=== PATIENT | female | born 1945 | race Caucasian/White ===

== ENCOUNTER 2019-10-04 12:12 | Inpatient (IN) | payer MEDICARE, OTHER, SELFPAY ==
[2019-10-04] VITALS (9 sets, daily range): BP systolic 111–139; BP diastolic 62–82; PULSE 52–92; RESP 18–22; TEMP 36.2–36.9; O2SAT 96–100; BMI 26.2
--- NOTE | 2019-10-04 12:51 | US_ITS ---
STUDY: ABDOMINAL ULTRASOUND - RIGHT UPPER QUADRANT REASON FOR VISIT: Female, 74 years old RUQ PAIN TECHNIQUE: Ultrasound evaluation of the right upper quadrant was performed with real-time and static rodriguez-scale imaging. TECHNICAL QUALITY: Adequate. COMPARISON: None. FINDINGS: Liver: The liver measures 13.8 cm. There is increased echogenicity consistent with fatty infiltration. The bile ducts are within normal limits. There is hepatic color flow. The direction of portal flow is hepatopetal. There is no demonstrated mass lesion. Gallbladder: Normal distended gallbladder. The gallbladder wall measures 2.0 mm. There is a positive sonographic Vivar''s sign. There is no pericholecystic fluid. There are multiple echogenic structures within the gallbladder, consistent with multiple gallstones. At least one gallstone is seen in the neck of the gallbladder. Common Bile Duct (C.B.D.): The common bile duct measures 7.0 mm. Pancreas: Normal size of the head, body and tail of the pancreas. There is normal echogenicity of the pancreas. There is no demonstrated pancreatic mass or cyst. Right Kidney: Normal size of the right kidney. The right kidney measures 9.2 cm x 3.7 cm x 3.4 cm. Normal renal cortex. The right cortex measures 1.2 cm. There is no demonstrated renal mass or cyst. There is no right hydronephrosis. US/Abdomen Limited IMPRESSION: Multiple gallstones. Mild degree of fatty infiltration of the liver. Electronically Signed: Deondre Bower, at 13:54 EST , Service support ,
--- NOTE | 2019-10-04 12:51 | ED.DCSUM_ITS ---
History of Present Illness Chief Complaint: Abd Pain Informant: Patient Onset: Today Current Severity: Resolved Maximum Severity: Severe Narrative: Patient presents with upper abdominal pain that is been bothering her overnight. Patient states she woke approximately 2 AM with severe upper abdominal pain that radiate up into her chest into her shoulders. She did take 2 Tums and was able to get it to calm down. She is able to sleep again for several hours. She woke up this morning and still felt ill with some mild upper abdominal pain. Abdominal pain worsened later in the morning. She was able to eat a half a bowl of oatmeal. She did take Percocet around 11 AM. She currently denies any pain. - Past Medical History (1) High cholesterol Status: Chronic (2) GERD (gastroesophageal reflux disease) Status: Chronic (3) Hypothyroid Status: Chronic Past Medical History - Allergies and Home Meds Allergies/Adverse Reactions: Allergies No Known Allergies Allergy (Verified 10/04/19 12:13) Primary Care Physician: Chris Wise DO [Primary Care Provider] - Prior records reviewed: Yes Surgical History: appendectomy Lives: Alone Smoking Status: Former smoker Review of Systems General: Denies: Chills, Fever Eyes: Denies: Visual changes - bilaterally ENT: Denies: Bilateral ear pain Cardiovascular: Denies: Chest pain Respiratory: Denies: Dyspnea, Cough Gastrointestinal: Reports: Abdominal pain. Denies: Nausea, Vomiting, Diarrhea Genitourinary: Denies: Dysuria Musculoskeletal: Denies: Extremity Pain Skin: Denies: Rash Neurological: Denies: Headache Allergy: Denies: Uticaria Physical Exam Vital Signs/Narrative: Vital Signs Temp Pulse Resp BP Pulse Ox 10/04/19 12:14 97.2 F L 52 L 18 123/62 H 99 Inital Vital Signs reviewed: Yes General: Well nourished, Well developed Head: Normocephalic ENT: Moist mucous membranes Neck: Supple Cardiovascular: Regular rate, Regular rhythm Respiratory: No distress, CTA bilaterally Abdomen: Soft, Nontender, Normal bowel sounds Skin: Normal color Neurological: Alert, Oriented x3 Psychological: Normal affect Diagnostic/Tx/Re-eval Impressions Abdomen Ultrasound 10/04/19 12:51 IMPRESSION: Multiple gallstones. Mild degree of fatty infiltration of the liver. Electronically Signed: Deondre Bower, at 13:54 EST , Service support , 10/04/19 12:51 Abdomen Limited [US] Stat Laboratory Results 10/04/19 10/04/19 12:43 12:48 WBC 10.0 RBC 4.11 L Hgb 11.1 L Hct 35.7 L MCV 86.9 MCH 27.0 MCHC 31.1 L RDW Std Deviation 48.5 H RDW Coeff of Jose Alberto 15.4 H Plt Count 239 MPV 9.9 Immature Gran % (Auto) 0.400 Neut % (Auto) 83.6 H Lymph % (Auto) 7.9 L [place] % (Auto) 6.9 Eos % (Auto) 0.9 Baso % (Auto) 0.3 Absolute Neuts (auto) 8.4 H Absolute Lymphs (auto) 0.79 L Nucleated RBC % 0 Sodium 139 Potassium 3.8 Chloride 107 Carbon Dioxide 26.0 Anion Gap 6 BUN 13 Creatinine 1.11 H Estim Creat Clear Calc 38.98 Est GFR (MDRD) Af Amer 62 Est GFR (MDRD) Non-Af 51 L BUN/Creatinine Ratio 11.7 Glucose 117 H Calcium 10.0 Total Bilirubin 0.40 Direct Bilirubin 0.23 AST 75 H ALT 47 Alkaline Phosphatase 96 Troponin I < 0.015 Total Protein 6.6 Albumin 3.4 Globulin 3.2 Lipase 912 H - Medical Decision Making Patient declined anything for pain while emergency room. She was given IV fluids. Test results are discussed with patient and sister at bedside. I spoke with the Fred who reviewed her images. He presented to the emergency room to see the patient. He will plan on taking the patient to the OR this afternoon. ED Disposition - Plan for ED Patient: Disposition: Acute Care Hospital [facility] Diagnosis: Gallstone pancreatitis Referrals: Chris Wise DO [Primary Care Provider] -
[2019-10-04 13:03] LABS: Absolute Lymphocyte Count 0.79 X10^3/uL (0.83-4.51); Absolute Neutrophil Count 8.4 X10^3/uL (2.0-7.7); Basophil# 0.03 X10^3/uL; Basophil% 0.3 % (0-1); Eosinophil# 0.09 X10^3/uL; Eosinophils% 0.9 % (0-5); Hematocrit 35.7 % (37-47); Hemoglobin 11.1 g/dL (12.0-15.0); Lymphocyte # 0.79 X10^3/ul (4.0); Lymphocyte % 7.9 % (19-41); Mean Corp Hgb Conc 31.1 g/dL (32-36); Mean Corpuscular Volume 86.9 fL (81-99); Mean Platelet Vol. 9.9 fl (6.2-12.0); Monocyte# 0.69 X10^3/uL; Monocyte% 6.9 % (0-10); NRBC Flagged by Analyzer 0 % (0-5); Neutrophil # 8.36 X10^3/uL (2.7-7.7); Neutrophil % 83.6 % (47-70); Platelet Count 239 K/mm3 (150-450); RBC Distribution Width CV 15.4 % (11.6-14.6); RBC Distribution Width SD 48.5 fl (35.1-43.9); Red Blood Count 4.11 M/mm3 (4.2-5.4)
[2019-10-04 13:19] LABS: AST(SGOT) 75 U/L (15-37); Alanine Aminotransfer ALT/SGPT 47 U/L (13-56); Albumin, Serum 3.4 g/dL (3.2-5.0); Alkaline Phosphatase 96 U/L (45-117); Anion Gap 6 (5-15); BUN 13 mg/dL (7-18); BUN/Creat Ratio 11.7 RATIO (10-20); Bilirubin, Direct 0.23 mg/dL (0.00-0.30); Chloride 107 mmol/L (98-107); Creatinine, Serum 1.11 mg/dL (0.55-1.02); EST Glomerular Filtration Rate 51 mL/min (>60); Est Glom Filt Rate - Afr Amer 62 mL/min (>60); Estimated Creatinine Clearance 38.98 ml/min; Globulin 3.2 g/dL (2.2-4.2); Glucose 117 mg/dL (74-106); Lipase 912 U/L (73-393); Potassium 3.8 mmol/L (3.5-5.1); Protein, Total 6.6 g/dL (6.4-8.2); Sodium Level 139 mmol/L (136-145)
[2019-10-04] MEDS: 0.9% Normal Saline 1,000 ML 150 ML IV (13:26)
--- NOTE | 2019-10-04 16:43 | PCM.HP.STD ---
Problem List (1) Acute cholecystitis Status: Acute (2) Gallstone pancreatitis Status: Acute History of Present Illness Date of Admission: 10/04/19 The patient is a 74 year old F who presented with right upper quadrant and epigastric pain. The patient reports the pain started yesterday. She said it woke her this morning as well. She took a Percocet today and her pain has remitted but she has not tried a diet today. She did have nausea but no vomiting. Past Medical History Past Medical History (Chronic Problems): Chronic Problems High cholesterol (Chronic) GERD (gastroesophageal reflux disease) (Chronic) Hypothyroid (Chronic) Allergies No Known Allergies Allergy (Verified 10/04/19 12:13) Home Medications: Ambulatory Orders Medication Instructions Recorded Levothyroxine [Synthroid] 112 mcg PO DAILY 10/04/19 Ranitidine [Zantac] 300 mg PO BID 10/04/19 Rosuvastatin Calcium [Crestor] 20 mg PO UD 10/04/19 Surgical History: appendectomy Lives: Alone Smoking Status: Former smoker - *Family History Maternal History Items: No pertinent history Review of Systems Constitutional: Reports: Anorexia. Denies: Fever HEENT: Denies: Difficulty Swallowing Cardiovascular: Denies: Chest Pain Respiratory: Denies: Cough, Shortness of Breath Gastrointestinal: Reports: Abdominal Pain, Nausea. Denies: Constipation, Diarrhea, Vomiting Musculoskeletal: Denies: Joint Tenderness Skin: Denies: Jaundice Neurological: Denies: Balance problems Hematologic/ Lymphatic: Denies: Anemia VTE Information - Inpt Only VTE Present on Admission: No VTE Mechan Device Prophylaxis: SCD's Patient Problems: Active and Suspected Problems Gallstone pancreatitis (Acute) Acute cholecystitis (Acute) - Physical Exam Vitals/I&O's: Vital Signs Temp Pulse Resp BP Pulse Ox 98.5 F 91 22 H 138/70 H 99 10/04/19 16:32 10/04/19 16:32 10/04/19 16:32 10/04/19 16:32 10/04/19 16:32 Oxygen Delivery Method Room Air Weight: 152 lb 12.485 oz Body Mass Index (BMI) 26.2 Intake and Output for Last 24 Hours 10/02/19 10/03/19 10/04/19 23:59 23:59 23:59 Intake Total 1000 / 1000 Balance 1000 / 1000 General: Alert, Oriented x3 Neck: No JVD Lungs: Normal air movement Cardiovascular: Regular rate, Regular Rhythm Abdomen: Soft, Non Tender, Non-Distended Extremities: No clubbing Musculoskeletal: No Muscle Wasting Neurological: Cranial nerves II-XII grossly intact Psych/Mental Status: Normal Affect Laboratory Results 10/04/19 12:43: WBC 10.0, RBC 4.11 L, Hgb 11.1 L, Hct 35.7 L, MCV 86.9, MCH 27.0, MCHC 31.1 L, RDW Std Deviation 48.5 H, RDW Coeff of Jose Alberto 15.4 H, Plt Count 239, MPV 9.9, Immature Gran % (Auto) 0.400, Neut % (Auto) 83.6 H, Lymph % (Auto) 7.9 L, [place] % (Auto) 6.9, Eos % (Auto) 0.9, Baso % (Auto) 0.3, Absolute Neuts (auto) 8.4 H, Absolute Lymphs (auto) 0.79 L, Nucleated RBC % 0 10/04/19 12:48: Sodium 139, Potassium 3.8, Chloride 107, Carbon Dioxide 26.0, Anion Gap 6, BUN 13, Creatinine 1.11 H, Estim Creat Clear Calc 38.98, Est GFR (MDRD) Af Amer 62, Est GFR (MDRD) Non-Af 51 L, BUN/Creatinine Ratio 11.7, Glucose 117 H, Calcium 10.0, Total Bilirubin 0.40, Direct Bilirubin 0.23, AST 75 H, ALT 47, Alkaline Phosphatase 96, Troponin I < 0.015, Total Protein 6.6, Albumin 3.4, Globulin 3.2, Lipase 912 H Clinical Impression(s) from Imaging Studies Abdomen Ultrasound 10/04/19 12:51 IMPRESSION: Multiple gallstones. Mild degree of fatty infiltration of the liver. Electronically Signed: Deondre Bower, at 13:54 EST , Service support , Current Medications Sodium Chloride () 1,000 mls @ 150 mls/hr IV .Q6H40M ALIA Last Infusion: 10/04/19 16:33 Dose: Infused Documented by: Assessment/Plan All Active Problems Gallstone pancreatitis (Acute) Acute cholecystitis (Acute) 74-year-old female with acute cholecystitis 1. Patient has a borderline white count with a left shift. She also has right upper quadrant and epigastric pain. Her lipase was mildly elevated suggesting gallstone pancreatitis. She had an ultrasound which showed a gallstone lodged in the neck of the gallbladder. She likely has developing acute cholecystitis with possible gallstone pancreatitis. I recommended laparoscopic cholecystectomy with cholangiogram. I also discussed the possibility of having to do an ERCP if she does have choledocholithiasis. 2. I discussed the procedure in detail with the patient. I discussed the risks, benefits, and alternatives of the procedure. I discussed the risks including but not limited to bleeding, infection, injury to surrounding organs such as the liver, bile duct, bowels. I did discuss the possibility of having to convert to an open procedure as well as the possibility that if any injuries occurred this may necessitate further surgery at a tertiary care center. Oscar Ibarra MD Pager: [facility] [address] [place] [address] [address] [place] [address] Office:
[2019-10-04] MEDS: Famotidine 20 MG Tablet PO (22:53)
[2019-10-05] VITALS (11 sets, daily range): BP systolic 101–123; BP diastolic 54–68; PULSE 59–94; RESP 14–18; TEMP 36.2–37.2; O2SAT 92–100; BMI 26.2
--- NOTE | 2019-10-05 | GALL_PTH ---
PATIENT: RODRI NORMAN LOC: MS3 U#:[id number] AGE/SX: 74/F ROOM: MS311 RE10/04/[address]: Dr. Oscar Ibarra MD : 1945 BED: 1 DIS: 10/05/2019 SPEC #: [id number] RECD: 10/07/19 09:20 STATUS: PABLO LAUREN #: [id number] HE: 10/05/19 00:[address]: Oscar Ibarra DEPT: SURGICAL PATHOLOGY RECD BY: Jorge Boggs ENTERED: 10/07/19 13:18 SP TYPE: JUAN MIGUEL CABALLERO DR: Dr. Chris Wise DO Tissues: Gallbladder, NOS Procedures: Surgery Specimen Level III HEADER OPERATION: Laparoscopic cholecystectomy with IOC PRE-OP DIAGNOSIS: Acute cholecystitis TISSUE SUBMITTED: Gallbladder MICROSCOPIC DIAGNOSIS Gallbladder, cholecystectomy: Chronic cholecystitis and cholelithiasis. SJ:alba 10/08/19 MICROSCOPIC DESCRIPTION Slides are reviewed. GROSS DESCRIPTION Received is one container labeled with the patient's name and designated gallbladder. The specimen consists of a gallbladder measuring 7.5 x 3.5 x 2.8 cm. The external surface is smooth and glistening. Focally, it is granular, hemorrhagic and contains cautery artifact. The lumen of the gallbladder contains yellow-green mucoid bile and multiple black calculi ranging in size from <0.1 to 1 cm. The mucosa is bile-stained and without any mass lesions. The gallbladder wall averages 0.2 cm in thickness and is free of mass lesions. Electric [employer] sections of the gallbladder and the cystic duct at margin of resection are submitted in one cassette. / AM:alba 10/07/19 TC:3 CPT: 33995
--- NOTE | 2019-10-05 07:51 | NURSING ---
pt transported to PACU for pre-op at this time via bed. zosyn infusion running on pump. OR aware that clive is waiting downstairs in surgical waiting area
[2019-10-05 08:04] LABS: Absolute Lymphocyte Count 1.26 X10^3/uL (0.83-4.51); Absolute Neutrophil Count 4.9 X10^3/uL (2.0-7.7); Basophil# 0.04 X10^3/uL; Basophil% 0.6 % (0-1); Eosinophil# 0.19 X10^3/uL; Eosinophils% 2.7 % (0-5); Hematocrit 32.3 % (37-47); Hemoglobin 10.1 g/dL (12.0-15.0); Lymphocyte # 1.26 X10^3/ul (4.0); Lymphocyte % 18.1 % (19-41); Mean Corp Hgb Conc 31.3 g/dL (32-36); Mean Corpuscular Hgb 27.2 pg (27.0-32.0); Mean Corpuscular Volume 86.8 fL (81-99); Monocyte# 0.57 X10^3/uL; Monocyte% 8.2 % (0-10); NRBC Flagged by Analyzer 0 % (0-5); Neutrophil # 4.89 X10^3/uL (2.7-7.7); Neutrophil % 70.3 % (47-70); Platelet Count 208 K/mm3 (150-450); RBC Distribution Width CV 15.6 % (11.6-14.6); RBC Distribution Width SD 49.9 fl (35.1-43.9); Red Blood Count 3.72 M/mm3 (4.2-5.4)
--- NOTE | 2019-10-05 08:15 | RAD_ITS ---
PROCEDURE: INTRAOPERATIVE CHOLANGIOGRAM DATE OF EXAMINATION: 10/05/2019 INDICATION: Female, 74 years old. Following a laparoscopic cholecystectomy an intraoperative cholangiogram was performed by the surgeon. Cumulative dose: 42.28 mGy TECHNIQUE: Under fluoroscopic guidance an intraoperative cholangiogram was performed with serial digital images obtained. FINDINGS: There is opacification of the common bile duct, hepatic duct, right and left hepatic ducts. The ducts are dilated. Multiple small round to mildly elongated, partially mobile filling defects in the lower CBD just above the ampulla are identified with subsequent placement of biliary stent on final images. The stent extends from the upper CBD into the duodenum. The contrast flows into the second portion of the duodenum. RAD/Cholangiogram/ O R,Initial IMPRESSION: 1. Fluoroscopic guidance for intraoperative cholangiogram during cholecystectomy and CBD stent placement. 2. Small lower CBD filling defects may represent choledocholithiasis, debris, neoplasm or less likely air bubbles. Electronically Signed: Julio Eubanks MD (Brooks) at 12:17 EST , Service support ,
[2019-10-05 08:26] LABS: ALB/GLOB Ratio 0.9 RATIO (0.9-2.4); AST(SGOT) 55 U/L (15-37); Alanine Aminotransfer ALT/SGPT 67 U/L (13-56); Albumin, Serum 2.8 g/dL (3.2-5.0); Alkaline Phosphatase 87 U/L (45-117); Anion Gap 7 (5-15); BUN 9 mg/dL (7-18); Calcium,Total 8.6 mg/dL (8.5-10.1); Chloride 111 mmol/L (98-107); Creatinine, Serum 1.12 mg/dL (0.55-1.02); EST Glomerular Filtration Rate 51 mL/min (>60); Est Glom Filt Rate - Afr Amer 61 mL/min (>60); Estimated Creatinine Clearance 38.63 ml/min; Glucose 88 mg/dL (74-106); Lipase 207 U/L (73-393); Potassium 3.6 mmol/L (3.5-5.1); Protein, Total 5.8 g/dL (6.4-8.2); Sodium Level 144 mmol/L (136-145)
[2019-10-05] MEDS: Lactated Ringers 1,000 ML 100 ML IV (08:30)
[2019-10-05 08:41] LABS: Thyroid Stim Hormone (TSH) 1.62 uIU/mL (0.358-3.74)
[2019-10-05] MEDS: Bupivacaine 0.25% 30 ML Vial (09:26)
--- NOTE | 2019-10-05 15:28 | PCM.OPRPT ---
Problem List (1) Acute cholecystitis Status: Acute (2) Gallstone pancreatitis Status: Acute Report of Operation Date of Procedure: 10/05/19 Pre-Operative Diagnosis: Acute cholecystitis Post-Operative Diagnosis: Acute cholecystitis and choledocholithiasis Surgery/Procedure Performed:: Laparoscopic cholecystectomy with common duct exploration and stent placement Specimen's removed: Gallbladder and contents Description of Procedure: After obtaining informed consent patient was brought back to the operating room. General anesthesia was induced. The abdomen was prepped and draped in usual sterile fashion. A small midline incision was made superior to the umbilicus and deepened to the level of fascia. The fascia was elevated and incised. Next the peritoneum was elevated and incised in the same fashion. Finger sweep was performed and the Mitchell trocar was placed into the abdomen. The balloon was inflated. The abdomen was inflated to 15 mmHg. Next a camera was introduced into the abdomen and the abdomen was inspected. Next under direct visualization three 5-mm ports were placed one subxiphoid and 2 subcostal. Next the gallbladder was elevated and retracted toward the right shoulder. The peritoneum was stripped from the gallbladder. The infundibulum was located and retracted laterally. Next the triangle of Calot was dissected and the cystic duct and cystic artery were identified. Cholangiograms were performed. The Hernandes clamp was used to clamp across the infundibulum and the catheter needle was inserted into the gallbladder. Under fluoroscopy contrast was instilled into the gallbladder and the common duct, cystic duct as well as proximal hepatic ducts were identified. There was not good filling of the duodenum. There were filling defects in the distal common bile duct and the common bile duct and cystic duct were both dilated. Next a clip was placed in the proximal cystic duct. An introducer needle was placed in the right upper quadrant and then as sheath introducer was placed over this and the needle and guidewire removed. Next through the introducer a 4 Citizen [place] Lia catheter was placed and it was placed into the cystic duct and into the common bile duct. Contrast was instilled. A guidewire was placed through this and into the common bile duct and into the duodenum. Next the Lia catheter was removed and over the guidewire a 7 Citizen [place] stent was guided across the ampulla with the distal end in the small bowel and the proximal end of the common bile duct. It was deployed in good position. Once the stent was deployed contrast freely flowed from the common duct into the small bowel. It appeared to be in good position. The guidewire was removed as well as the introducer. Next clips were placed on the distal cystic duct. The cystic duct was then divided leaving 2 clips on the stump. The cystic artery was clipped and divided in the same fashion. The hook cautery was then used to take the gallbladder off of the gallbladder bed. Hemostasis was obtained. Gallbladder fossa was irrigated and no active bleeding or bile leakage was noted. Next the camera switched to a 5 mm camera and introduced in the subxiphoid port. An Endopouch bag was placed through the umbilical port and the gallbladder was placed into it. The gallbladder was then removed through the umbilical incision. The camera was then reinserted through the umbilical port. The gallbladder fossa was inspected once more and noted to be hemostatic with no leaking bile. The abdomen was suctioned dry. The 5 mm ports were removed under direct visualization. The umbilical port was then removed and the air was removed from the abdomen. Next using an 0 Vicryl suture the umbilical fascia was closed in a [id number] fashion. The umbilical port site was irrigated local anesthetic was administered to all the incisions. All the incisions were closed with interrupted subcuticular 4-0 Monocryl sutures followed by Steri-Strips and dressings. The patient was awoken and taken to PACU in stable condition. Grafts/Implants Used: 7 [place] stent - Admit VTE Documentation VTE Mechan Device Prophylaxis: SCD's
--- NOTE | 2019-10-05 15:38 | DCINST_ITS ---
Discharge Diet: Light diet - advance as tolerated Discharge Activity: Return to Normal Activity, May Not Drive - for 2-3 days or while taking narcotic pain medicataions., - - Do not drive, work heavy equipment or sign legal documents for 24 hours. May shower in (days): 1 - with the bandage in place. Lifting Restrictions: 20 lbs for 2 weeks Additional Activity Instructions:: Pain medication may cause nausea. You should typically eat light foods as you take your pain medications. Pain medication may also cause constipation. If this is a problem for you, please discuss with your doctor. Call your doctor if your incision/area has: Continuous Slow Oozing, Sudden Increased Bleeding, Increased Pain/ Swelling, Increased Redness, Foul Smelling Discharge, Fever of 101 or Higher Call your doctor if you observe: Fever of 101 or Higher Suture Line Care: Avoid Pulling/Pushing, Avoid Pinching/Bending Additional Dressing/Incision Instructions:: Leave operative bandaids on for 2 days. When you remove dressing, leave Steri-Strips on until your follow-up appointment, or until the Steri-Strips fall off on their own. Allergies/Adverse Reactions: Allergies No Known Allergies Allergy (Verified 10/04/19 12:13) Medications to take at Discharge Levothyroxine [Synthroid] 112 mcg PO DAILY 10/04/19 Ranitidine [Zantac] 300 mg PO BID 10/04/19 Rosuvastatin Calcium [Crestor] 20 mg PO UD 10/04/19 Acetaminophen [Tylenol Tablet] 650 mg PO Q6H PRN PRN tablet 10/05/19 Primary Care Physician: Chris Wise DO [Primary Care Provider] - Test Results: Test results from this visit will be discussed in further detail at your follow- up appointment, if applicable. Please Follow Up With: Oscar Ibarra MD When: Please call to schedule 1 week follow up appointment. [phone]
== END 2019-10-05 16:29 | disposition home or self-care (01) | DRG 419 ==
LOC: ED 18:39 → MS3 18:41
PROVIDERS: Anesthesiology; Admitting Provider Surgery; Emergency Provider Emergency Medicine; PCP Student in an Organized Health Care Education/Training Program; Visit Provider Surgery
PROC: (CPT 47610; principal; 2019-10-04 16:20)
PROC: 0FT44ZZ Resection of Gallbladder, Percutaneous Endoscopic Approach (ICD-10-PCS; CPT 47610; principal; 2019-10-05 08:00)
DX: K80.62 Calculus of gallbladder and bile duct with acute cholecystitis without obstruction (principal); Z87.891 Personal history of nicotine dependence
CPT/HCPCS: 36415; 74300; 76000; 76705; 80048; 80053; 80076; 83690; 84443; 84484; 85025; 88304; 93005; 97802; 99251; 99285; J7030; J7120; G0463; J1610; J2405

== ENCOUNTER 2019-11-12 09:59 | Day surgery (SDC) | payer MEDICARE, OTHER, SELFPAY ==
[2019-10-14 09:53] VITALS: BMI 26.2
--- NOTE | 2019-10-14 09:53 | HP_ITS ---
Intake Intake Visit Reasons: F/U CHOLECYSTECTOMY 10/05/2019 Chief Complaint: abdominal pain Allergies No Known Allergies Allergy (Verified 10/14/19 08:41) Medications Levothyroxine [Synthroid] 112 mcg PO DAILY 10/04/19 [History Confirmed 10/14/19] Ranitidine [Zantac] 300 mg PO BID 10/04/19 [History Confirmed 10/14/19] Rosuvastatin Calcium [Crestor] 20 mg PO UD 10/04/19 [History Confirmed 10/14/19] Acetaminophen [Tylenol Tablet] 650 mg PO Q6H PRN PRN tab 10/05/19 [Rx Confirmed 10/14/19] PFSH Medical History High cholesterol (Chronic) GERD (gastroesophageal reflux disease) (Chronic) Hypothyroid (Chronic) Gallstone pancreatitis (Acute) Acute cholecystitis (Acute) Surgical History S/P laparoscopic cholecystectomy (Acute) HPI HPI HPI: RODRI NORMAN, is a 74 F who presents to the office today for HPI HPI Surgical H&P: Yes HPI: RODRI NORMAN, is a 74 F who presents to the office today for follow-up after cholecystectomy. Patient reports that she is doing well with no pain. ROS General General: No weight change or fatigue Cardio Cardiovascular: No murmur, pacemaker, heart disease, atrial fibrillation, high blood pressure, heart attack, heart stent, palpitations, shortness of breat with exertion or chest pain Psych Psychiatric: No depression or anxiety Resp Respiratory: No shortness of breath, No sleep apnea, No cough, No COPD, No asthma, No emphysema, No wheezing Gastro Gastrointestinal: No abdominal pain, No nausea or vomiting, No diarrhea, No constipation, No blood in stool, No acid reflux, No hemorrhoids, No ulcers, No gallbladder problem, No black,tarry stools Flako Hematologic: No blood thinners Exam Const General: cooperative Orientation: alert, oriented x3 Resp Effort & Inspection: normal respiratory effort Auscultation: clear to auscultation bilaterally Cardio Rate: regular rate Rhythm: regular rhythm Heart Sounds: no murmurs GI Inspection: non-distended Palpation: soft, nontender Assessment & Plan Problems 1. Choledocholithiasis K80.50 Plan Patient is doing well after laparoscopic cholecystectomy with common duct exploration. She had a stent placed at that time for a filling defect in the distal common bile duct. I will plan for ERCP with stent removal and clearing the duct of stones. I discussed the risk of the procedure including not limited to bleeding, infection, perforation of the bile duct or bowel, pancreatitis. I explained that if this was a difficult procedure she would stay for observation. Patient understands the risks and is willing to proceed with ERCP and stent removal as well as stone removal. Oscar Ibarra MD Pager: [facility] [address] [place] [address], [address] [place] [address] Office: Orders Orders: ERCP Biliary Only Today K80.50 Coding Level of Care Code Global Post Op Diagnoses Choledocholithiasis K80.50 10/14/19 0953 <Electronically signed by Oscar cuello MD> Date _ Oscar Ibarra MD I have re-examined the patient. There are no clinical changes since date of exam.
[2019-11-12] VITALS (7 sets, daily range): BP systolic 109–137; BP diastolic 65–96; PULSE 83–91; RESP 16–18; TEMP 36.2–36.7; O2SAT 95–100; BMI 26.9
--- NOTE | 2019-11-12 10:00 | RAD_ITS ---
CLINICAL HISTORY: ERCP with stent removal COMPARISON: None. TECHNIQUE: 3 image(s) of an ERCP performed by Physician: Oscar Ibarra were submitted for evaluation. FINDINGS: Images provided demonstrate an endoscope in place with opacification and cannulation of the biliary system. The visualized opacified biliary system demonstrate questionable narrowing of the distal CBD. The visualized soft tissues and osseous structures are otherwise unremarkable. RAD/ERCP Biliary Only IMPRESSION: Possible narrowing of the distal CBD is nonspecific. Please see associated procedure report for further details. Electronically Signed: Dom Nicholas, at 22:05 EST Tel , Service support ,
[2019-11-12] MEDS: Lactated Ringers 1,000 ML 100 ML IV (10:32)
--- NOTE | 2019-11-12 12:09 | OP.CCLET_ITS ---
11/12/2019 Chris Wise [address] [id number] Re : ERCP procedure for Olga Lidia Rees Dear Dr. Wise This procedure was performed on Tuesday, November 12, 2019. My impressions and recommendations are as follows: Impressions : - One stent was removed from the biliary tree. - A biliary sphincterotomy was performed. - The biliary tree was swept and sludge was found. Recommendations : - Watch for pancreatitis, bleeding, perforation, and cholangitis. - Discharge patient to home. - Resume previous diet. - Return to my office PRN. My findings are described in the full procedure note, which is enclosed. If I can be of further assistance, please feel free to contact me at Doctor phone number(s): , Work: . Sincerely, Oscar Ibarra MD 11/12/2019 12:08:50 PM This report has been signed electronically.
--- NOTE | 2019-11-12 12:09 | OP.ERCP_ITS ---
Patient Name: Olga Lidia Rees Procedure Date: 11/12/2019 11:11 AM Date of : 1945 Age: 74 Procedure: ERCP Indications: Follow-up of bile duct stone(s) Providers: Oscar Ibarra MD Referring MD: Chris Wise Medicines: General Anesthesia Patient Profile: This is a 74 year old female. Refer to note in patient chart for documentation of history and physical. Complications: No immediate complications. Estimated blood loss: Minimal. Procedure: Pre-Anesthesia Assessment: - Prior to the procedure, a History and Physical was performed, and patient medications and allergies were reviewed. The patient's tolerance of previous anesthesia was also reviewed. The risks and benefits of the procedure and the sedation options and risks were discussed with the patient. All questions were answered, and informed consent was obtained. Prior Anticoagulants: The patient has taken no previous anticoagulant or antiplatelet agents. ASA Grade Assessment: II - A patient with mild systemic disease. After reviewing the risks and benefits, the patient was deemed in satisfactory condition to undergo the procedure. After obtaining informed consent, the scope was passed under direct vision. Throughout the procedure, the patient's blood pressure, pulse, and oxygen saturations were monitored continuously. The duodenoscope was introduced through the mouth, and advanced to the duodenum and used to inject contrast into the bile duct. The ERCP was accomplished without difficulty. The patient tolerated the procedure well. Scope In: 11:43:55 AM Scope Out: 12:03:54 PM Total Procedure Duration Time 0 hours 19 minutes 59 seconds Findings: One stent was removed from the biliary tree using a snare. A 0.035 inch x 260 cm straight Dreamwire was passed into the biliary tree. Biliary sphincterotomy was made with a monofilament sphincterotome using ERBE electrocautery. There was no post-sphincterotomy bleeding. The biliary tree was swept with a 12 mm balloon starting at the bifurcation. Sludge was swept from the duct. The endoscope was withdrawn from the patient. Impression: - One stent was removed from the biliary tree. - A biliary sphincterotomy was performed. - The biliary tree was swept and sludge was found. Recommendation: - Watch for pancreatitis, bleeding, perforation, and cholangitis. - Discharge patient to home. - Resume previous diet. - Return to my office PRN. Procedure Code(s): --- Professional --- 88005, Endoscopic retrograde cholangiopancreatography (ERCP); with removal of foreign body(s) or stent(s) from biliary/pancreatic duct(s) Diagnosis Code(s): --- Professional --- Z46.59, Encounter for fitting and adjustment of other gastrointestinal appliance and device K80.50, Calculus of bile duct without cholangitis or cholecystitis without obstruction CPT copyright 2017 [employer]. All rights reserved. The codes documented in this report are preliminary and upon transportation consultant review may be revised to meet current compliance requirements. Oscar Ibarra MD 11/12/2019 12:08:50 PM This report has been signed electronically. Number of Addenda: 0 Note Initiated On: 11/12/2019 11:11 AM
== END 2019-11-12 13:21 | disposition home or self-care (01) ==
LOC: EN 10:00 → AC 10:01
PROVIDERS: PCP Student in an Organized Health Care Education/Training Program; Referring Provider Student in an Organized Health Care Education/Training Program; Visit Provider Surgery
PROC: (CPT 43260; principal; 2019-11-12 09:30)
DX: Z46.59 Encounter for fitting and adjustment of other gastrointestinal appliance and device (principal); K80.50 Calculus of bile duct without cholangitis or cholecystitis without obstruction; E78.00 Pure hypercholesterolemia, unspecified; K21.9 Gastro-esophageal reflux disease without esophagitis; G25.81 Restless legs syndrome; E03.9 Hypothyroidism, unspecified; Z79.899 Other long term (current) drug therapy; Z87.891 Personal history of nicotine dependence
CPT/HCPCS: 43275; 74328; 76000; J7120; J1610; J2405

== ENCOUNTER 2020-11-16 06:24 | Outpatient (RCR) | payer MEDICARE, OTHER, SELFPAY ==
[2019-11-12 10:15] VITALS: BMI 26.9
== END 2020-11-16 23:59 ==
LOC: IMMUN 06:24
PROVIDERS: PCP Student in an Organized Health Care Education/Training Program; Visit Provider Family Medicine
DX: Z23 Encounter for immunization (principal)
CPT/HCPCS: 0011A; 0012A